=== PATIENT | male | born 1955 | race American Indian/Alaskan Native ===

== ENCOUNTER 2016-07-16 16:38 | Inpatient (IN) | payer MEDICAID, OTHER ==
[2016-07-16 16:50] VITALS: BMI 18.8
[2016-07-16 17:48] LABS: RBC URINE < 1 /hpf (0-3); URINE BILIRUBIN NEGATIVE (NEGATIVE); URINE BLOOD NEGATIVE (NEGATIVE); URINE COLOR Yellow (YELLOW); URINE GLUCOSE (UA) NORMAL (Normal); URINE KETONE NEGATIVE (NEGATIVE); URINE LEUKOCYTE ESTERASE NEG Leu/uL (Negative); URINE PROTEIN NEGATIVE (NEGATIVE); URINE UROBILINOGEN NORMAL mg/dL (0.2-1.0); WBC URINE 1 /hpf (0-5)
[2016-07-16 17:54] LABS: BASO % 0.8 % (0.0-2.0); EOS % 0.9 % (0.0-4.0); HEMATOCRIT 37.5 % (35.0-51.0); LYMPH # 2.1 K/uL (1.0-4.3); MEAN CORPUSCULAR HEMOGLOBIN 22.6 pg (27.0-31.0); MEAN CORPUSCULAR HGB CONC 31.4 g/dL (33.0-37.0); MEAN PLATELET VOLUME 7.5 fL (7.2-11.7); MONO # 0.5 K/uL (0.0-0.8); MONO % 10.7 % (0.0-10.0); NRBC % 0.2 % (0.0-2.0); RED CELL DISTRIBUTION WIDTH 16.3 % (11.5-14.5); WHITE BLOOD COUNT 4.4 K/uL (4.8-10.8)
[2016-07-16 18:04] LABS: CHLORIDE 96 mmol/L (98-107); POTASSIUM 4.3 mmol/L (3.6-5.2); SODIUM 139 mmol/L (132-148)
[2016-07-16 18:06] LABS: ALB/GLOB RATIO 1.5 (1.0-2.1); ALKALINE PHOSPHATASE 49 U/L (38-126); AST/SGOT 70 U/L (17-59); BILIRUBIN,TOTAL 0.4 mg/dL (0.2-1.3); CARBON DIOXIDE 31 mmol/L (22-30); GFR AFRICAN-AMERICAN > 60; TOTAL PROTEIN 7.4 g/dL (6.3-8.3)
[2016-07-16 18:07] LABS: ALCOHOL SERUM < 10 mg/dl (0-10); ALT/SGPT 50 U/L (21-72); BLOOD UREA NITROGEN 22 mg/dL (9-20); CALCIUM 9.2 mg/dl (8.6-10.4); GLUCOSE,RANDOM 90 mg/dL (75-110)
--- NOTE | 2016-07-16 18:43 | C.PDOC ---
History Of Present Illness 60 year old male presents to the ED for pre-screening for heroin detox. Patient admits to using 10 bags a day intranasal. Patient denies any other complaints at this time. Time Seen by Provider: 07/16/16 17:10 Chief Complaint (Nursing): Substance Abuse History Per: Patient History/Exam Limitations: no limitations Onset/Duration Of Symptoms: Hrs Current Symptoms Are (Timing): Still Present Recent travel outside of the [place]: No Past Medical History Reviewed: Historical Data, Nursing Documentation, Vital Signs Vital Signs: Last Vital Signs Temp 97.8 F 07/16/16 20:07 Pulse 62 07/16/16 20:07 Resp 18 07/16/16 20:07 BP 128/77 07/16/16 20:07 Pulse Ox 97 07/16/16 20:07 - Medical History PMH: Kidney Stones (LEFT KIDNEY), Chronic Kidney Disease Family History: States: No Known Family Hx - Social History Hx Alcohol Use: No (FORMER) Hx Substance Use: Yes - Immunization History Hx Tetanus Toxoid Vaccination: No Hx Influenza Vaccination: No Hx Pneumococcal Vaccination: No Review Of Systems Constitutional: Negative for: Fever, Chills, Sweats Cardiovascular: Negative for: Chest Pain, Palpitations Respiratory: Negative for: Cough, Shortness of Breath Gastrointestinal: Negative for: Nausea, Vomiting, Abdominal Pain, Diarrhea Physical Exam - Physical Exam Appears: Non-toxic, No Acute Distress Skin: Warm, Dry Eye(s): bilateral: Abnormal Pupil (pin point pupils ) Oral Mucosa: Moist Neck: Normal ROM, Supple Chest: Symmetrical, No Deformity Cardiovascular: Rhythm Regular Respiratory: No Rales, No Rhonchi, No Stridor, No Wheezing Gastrointestinal/Abdominal: Soft, No Tenderness, No Distention, No Guarding, No Rebound Extremity: Normal ROM, No Tenderness Neurological/Psych: Oriented x3 ED Course And Treatment - Laboratory Results Result Diagrams: 07/16/16 17:49 07/16/16 17:49 Lab Interpretation: Abnormal (tox + cocaine, opiates, methadone) O2 Sat by Pulse Oximetry: 99 - Physician Consult Information Outcome Of Conversation: 1899: d/w Crisis- ok to detox. Medical Decision Making Medical Decision Making: chronic microcytic anemia, should be d/c home on Iron supplements and consider GI evaluation to r/o colonic CA Tox: + cocaine, opiates, methadone- detox appropriately as inpt. Disposition Doctor Will See Patient In The: Hospital Counseled Patient/Family Regarding: Studies Performed, Diagnosis - Disposition Disposition: HOSPITALIZED Disposition Time: 18:34 Condition: GOOD - Clinical Impression Clinical Impression: Polysubstance dependence including opioid type drug, episodic abuse, Iron deficiency anemia - Scribe Statement The provider has reviewed the documentation as recorded by the Dorisibophelia Hernadez All medical record entries made by the Alexandru were at my direction and personally dictated by me. I have reviewed the chart and agree that the record accurately reflects my personal performance of the history, physical exam, medical decision making, and the department course for this patient. I have also personally directed, reviewed, and agree with the discharge instructions and disposition.
[2016-07-16] MEDS ORDERED: Aluminum Hydroxide/Magnesium Hydroxide Susp (30 mL) PO PRN (19:05)
[2016-07-17] MEDS ORDERED: Buprenorphine Hydrochloride 2 mg SL ONE (09:46)
--- NOTE | 2016-07-17 12:42 | PCM.PSYCH ---
Initial Psychiatric Evaluation - Initial Psychiatric Evaluation Type of Admission: Voluntary Legal Status: Capacity Chief Complaint (in patient's own words): I came here to get help. History of Present Illness and Precipitating Events: Patient is a 67 years old AAM, who lives alone came to the ED to get help in heroin detox. Patient denies any history of any inpatient psychiatric hospitalizations or any follow-up with any psychiatrist. He reports that he relapsed on heroin after his last detox at [facility], 2 months ago. He stated sniffing up to 10 bags of heroin on a daily basis. He denies any other substance abuse. Yesterday, he abused almost 4-6 bags of heroin and stated experiencing withdrawal symptoms, so came to the hospital to get help. He reports nausea, hot and cold sweating, joint pains, and abdominal cramps. He reports anxiety and irritable mood but denies any suicidal ideation or homicidal ideation. He denies any depressive, psychotic or manic symptoms. He denies any other substance abuse. Past medical history None Current Medications: Active Medications Generic Name Dose Route Start Last Admin Trade Name Freq PRN Reason Stop Dose Admin Al Hydrox/Mg Hydrox/Simethicone 30 ml 07/16/16 19:05 Maalox 30 Ml PO TID PRN Indigestion / Heartburn Clonidine HCl 0.1 mg 07/16/16 19:05 Catapres PO Q8 PRN COWS Score More or Equal to 5 Hydroxyzine HCl 25 mg 07/16/16 19:06 Atarax PO Q6 PRN Agitation Loperamide HCl 2 mg 07/16/16 19:05 Imodium PO Q8 PRN Diarrhea Methadone HCl 15 mg 07/18/16 10:00 Methadone PO 07/18/16 10:01 ONCE ONE Methadone HCl 10 mg 07/19/16 10:00 Methadone PO 07/19/16 10:01 ONCE ONE Methadone HCl 5 mg 07/20/16 10:00 Methadone PO 07/20/16 10:01 ONCE ONE Nicotine 1 patch 07/17/16 10:00 Nicoderm Cq TD DAILY BRIGIDO Ondansetron HCl 4 mg 07/16/16 19:05 Zofran Tab PO Q8 PRN Nausea/Vomiting Pseudoephedrine HCl 60 mg 07/16/16 19:05 Sudafed Tab PO QID PRN Nasal/Sinus Congestion Trazodone HCl 50 mg 07/16/16 22:00 07/16/16 22:36 Desyrel PO Not Given HS BRIGIDO Past Psychiatric History - Past Psychiatric History Previous Treatment History: Inpatient Pertinent Medical Hx (Current Medical&Sleep Prob, Allergies): Allergies Allergy/AdvReac Type Severity Reaction Status Date / Time PORK AdvReac Verified 07/16/16 16:50 No Known Home Med 07/16/16 Review of Systems - Review of Systems All systems: reviewed and no additional remarkable complaints except - Psychiatric Psychiatric: Anxiety, Irritability Mental Status Examination - Personal Presentation Personal Presentation: Looks stated age - Affect Affect: Constricted - Motor Activity Motor Activity: Calm - Reliability in Providing Information Reliability in Providing Information: Good - Speech Speech: Organized - Mood Mood: Anxious - Formal Thought Process Formal Thought Process: No Impairment - Obsessions/Compulsions Obsessions: No Compulsions: No - Cognitive Functions Orientation: Person, Place, Situation, Time Sensorium: Alert Attention/Concentration: Attentive Abstract Thinking: [place] Estimate of Intelligence: Below average Judgement: Imparied, as evidence by: Poor judgement, Intact, as evidence by: Insight regarding need for hospitalization - Risk Risk: Withdrawal, Diminished functioning - Strength & Assets Inventory Strength & Assets Inventory: Cooperative - Limitations Limitations: Living alone DSM 5 DX - DSM 5 DSM 5 Diagnosis: Opioid Withdrawal Opioid Use Disorder -severe Cocaine use Disorder -moderate - Recommended/Plan of Treatment Treatment Recommendations and Plan of Treatment: Opioid Withdrawal -CBT -PRN medications -Supportive therapy -Methadone taper Opioid Use Disorder -severe -Methadone taper -Group and individual therapy -GA for abstinence Cocaine use Disorder -moderate -CBT -PRN medications -Use GA for abstinence - Smoking Cessation Smoking Cessation Initiated: No
[2016-07-17 14:30] VITALS: RESP 18
[2016-07-18 05:40] VITALS: PULSE 74; TEMP 97.7
--- NOTE | 2016-07-18 09:32 | PCM.PYCHDC ---
Mental Status Examination - Mental Status Examination Orientation: Person, Place, Situation, Time Memory: Intact Mood: Neutral Affect: Constricted Speech: Soft Attention: WNL Concentration: WNL Association: WNL Fund of Knowledge: WNL Formal Thought Process: No Impairment Description of patient's judgement and insight: partially impaired Psychotic Thoughts and Behaviors: denies any AVH Suicidal Ideation: No Current Homicidal Ideation?: No Discharge Summary - Discharge Note Reason for Hospitalization: Patient is a 67 years old AAM, who lives alone came to the ED to get help in heroin detox. Patient denies any history of any inpatient psychiatric hospitalizations or any follow-up with any psychiatrist. He reports that he relapsed on heroin after his last detox at [facility], 2 months ago. He stated sniffing up to 10 bags of heroin on a daily basis. He denies any other substance abuse. Yesterday, he abused almost 4-6 bags of heroin and stated experiencing withdrawal symptoms, so came to the hospital to get help. He reports nausea, hot and cold sweating, joint pains, and abdominal cramps. He reports anxiety and irritable mood but denies any suicidal ideation or homicidal ideation. He denies any depressive, psychotic or manic symptoms. He denies any other substance abuse. Consultations:: List each consultation separately and include: 1. Reason for request. 2. Findings. 3. Follow-up Summary of Hospital Course include:: 1. Description of specific treatment plan utilized for patients during their course of treatmen. 2. Summarize the time- course for resolution of acute symptoms and/or regressed behaviors. 3. Describe issues identified and worked on during hospitalization. 4. Describe medication utilized. 5. Describe medical problems identified and treated. 6. Reassessment of suicide risk Summary of Hospital Course: During the course of his stay, patient (pt) started progressively improving and he no longer remained anxious. He started tolerating the withdrawal protocol and denied any shakes, sweating or any other withdrawal symptoms. However he signed AMA today. He denied any feelings of hopelessness, helplessness, and worthlessness, denied any problem with the sleep or appetite, denied suicidal ideation or homicidal ideation. Pt denied any auditory or visual hallucinations. Patient remained calm and cooperative and remained compliant with the medications. Patient tolerated the detox medications very well and denied any side effects. - Final Diagnosis (DSM 5) Condition upon Discharge: GOOD DSM 5: Opioid Withdrawal Opioid Use Disorder -severe Cocaine use Disorder -moderate Disposition: AGAINST MEDICAL ADVICE Follow-up Treatment Plan: Pt was educated and counseled about the risks and benefits of taking and not taking medications. Pt was educated and counseled about the risks of drinking and abusing drugs. Pt was educated and counseled to go to the ER or call 911 if pt develop suicidal ideation or homicidal ideation, worsening of symptoms or severe side effects of the meds. - Smoking Cessation Smoking Cessation Medication prescribed: No - Antipsychotic Medications Pt discharged on 2 or more routine antipsychotic medications: No
[2016-07-18 11:53] VITALS: BP 103/71; O2SAT 100
== END 2016-07-18 09:45 | disposition left against medical advice (07) | DRG 743 ==
LOC: C.ER 16:38 → C.7D 18:53 → UNDOADMOB 18:53
PROVIDERS: ADMIT Psychiatry & Neurology Psychiatry; ATTEND Psychiatry & Neurology Psychiatry
PROC: HZ2ZZZZ Detoxification Services for Substance Abuse Treatment (ICD-10-PCS; principal; 2016-07-16)
PROC: HZ46ZZZ Group Counseling for Substance Abuse Treatment, Psychoeducation (ICD-10-PCS; 2016-07-16)
PROC: HZ42ZZZ Group Counseling for Substance Abuse Treatment, Cognitive-Behavioral (ICD-10-PCS; 2016-07-16)
PROC: HZ32ZZZ Individual Counseling for Substance Abuse Treatment, Cognitive-Behavioral (ICD-10-PCS; 2016-07-16)
PROC: HZ36ZZZ Individual Counseling for Substance Abuse Treatment, Psychoeducation (ICD-10-PCS; 2016-07-16)
PROC: HZ59ZZZ Individual Psychotherapy for Substance Abuse Treatment, Supportive (ICD-10-PCS; 2016-07-16)
DX: F11.23 Opioid dependence with withdrawal (principal); D50.9 Iron deficiency anemia, unspecified; N18.9 Chronic kidney disease, unspecified; F14.90 Cocaine use, unspecified, uncomplicated